=== PATIENT | female | born 1960 | race Caucasian/White ===

== ENCOUNTER 2021-05-26 12:56 | Emergency (ER) | payer OTHER ==
[~2021-05-26] VITALS: Ht 162.6 cm; Wt 66.7 kg
[2021-05-26 13:01] VITALS: BP 135/77
--- NOTE | 2021-05-26 13:26 | NUR ---
PT AMBULATED TO ER BED 2
[2021-05-26] MEDS ORDERED: MECLIZINE 25 MG TAB PO ONE (13:45)
[2021-05-26] MEDS ORDERED: NACL 0.9% 1,000 ML IV SCH (13:45)
--- NOTE | 2021-05-26 13:46 | NUR ---
61 YEARS OLD FEMALE ALERT, ORIENTED X4 WALKING TO ER C/O DIZZINESS NO HEADACHE FOR COUPLE DAYS.
[2021-05-26 14:09] LABS: BASOPHILS % (AUTO) 0.3 % (0.0-2.0); EOSINOPHILS # (AUTO) 0.2 K/uL (0-0.4); EOSINOPHILS % (AUTO) 1.8 % (0.0-4.0); HEMATOCRIT 38.9 % (36-48); HEMOGLOBIN 13.4 g/dL (12.0-16.0); LYMPHOCYTES # (AUTO) 3.1 K/uL (2.5-16.5); LYMPHOCYTES % (AUTO) 23.5 % (20.5-51.1); MEAN CORPUSCULAR HEMOGLOBIN 28 pg (27-31); MEAN CORPUSCULAR HGB CONC 35 g/dL (33-37); MONOCYTES # (AUTO) 0.9 K/uL (0.8-1.0); NEUTROPHILS # (AUTO) 8.8 K/uL (1.8-7.7); NEUTROPHILS % (AUTO) 67.4 % (42.2-75.2); PLATELET COUNT (AUTO) 125 K/uL (140-450); RED BLOOD CELL COUNT(AUTO) 4.74 MIL/uL (4.20-5.40); WHITE BLOOD COUNT (AUTO) 13.1 K/uL (4.8-10.8)
[2021-05-26 14:38] LABS: ALBUMIN 3.7 g/dL (3.4-5.0); ANION GAP 10.2 (8-16); CARBON DIOXIDE 32.7 mmol/L (21-32); CREATININE 0.9 mg/dL (0.6-1.3); POTASSIUM 3.9 mmol/L (3.5-5.1); TOTAL BILIRUBIN 0.4 mg/dL (0.0-1.0)
[2021-05-26 14:44] LABS: APPEARANCE,URINE CLEAR (CLEAR); BILIRUBIN,URINE NEGATIVE (NEGATIVE); BLOOD, URINE TRACE-I (NEGATIVE); COLOR,URINE YELLOW (YELLOW); LEUKOCYTE ESTERASE ,URINE TRACE (NEGATIVE); NITRITE, URINE NEGATIVE (NEGATIVE); UGLUCOSE NEGATIVE (NEGATIVE)
[2021-05-26 15:07] LABS: RBC,URINE 0-5 /HPF (0-5); WBC,URINE 0-5 /HPF (0-5)
[2021-05-26] MEDS ORDERED: MECL-303 PO (15:58)
[2021-05-26 16:00] VITALS: BP 130/63
--- NOTE | 2021-05-26 16:02 | NUR ---
PATIENT CONDITION IMPROVED, DENIES HEADACHE, NAUSEA DIZZINESS D/C HOME WITH INSTRUCTIONS AFTER CARE REVIEWED UNDERSTOOD LEFT ER AMBULATORY WITH STEADY GAIT.
== END 2021-05-26 16:00 | disposition home or self-care (01) ==
LOC: MED 12:56
DX: H81.399 Other peripheral vertigo, unspecified ear (principal); E11.9 Type 2 diabetes mellitus without complications; I10 Essential (primary) hypertension; Z79.899 Other long term (current) drug therapy
CPT/HCPCS: 36415; 80053; 81001; 84484; 85025; 93005; 96360; 99284; J7030; J8597

== ENCOUNTER 2022-11-11 09:43 | Emergency (ER) | payer OTHER ==
[~2022-11-11] VITALS: Ht 167.6 cm; Wt 68.0 kg
[~2022-11-11 09:43] MED LIST: MECL-303 PO
[2022-11-11 10:03] VITALS: BP 156/81
[2022-11-11] MEDS ORDERED: KETOROLAC 30 MG/ML VIAL IM ONE (11:45)
[2022-11-11] MEDS ORDERED: NAPR-54 PO (11:49)
--- NOTE | 2022-11-11 12:13 | NUR ---
The patient's care was reviewed and supervised by EVERARDO HUBER RN.
[2022-11-11 12:14] VITALS: BP 140/81
--- NOTE | 2022-11-11 12:14 | NUR ---
Patient discharged with v/s stable. Written and verbal after care instructions FOR [facility]RO[facility] given and explained. Patient alert, oriented and verbalized understanding of instructions. Ambulatory with steady gait. All questions addressed prior to discharge. ID band removed. Patient advised to follow up with PMD. Rx of given. Opportunity to ask questions provided and answered. SPLINT PROVIDED AND APPLIED
--- NOTE | 2022-11-11 12:14 | NUR ---
PT. LEFT WITHOUT RN FULL ASSESSMENT. 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 BEFORE RN WAS ABLE TO EXAMINE PT. PT. NOT FOUND IN LOBBY. CALLED PT.S NAME OUTSIDE ER. CHECKED BATHROOMS. PT. NOT FOUND. PT. LEFT WITHOUT BEING SEEN. NOTIFIED.
== END 2022-11-11 12:14 | disposition home or self-care (01) ==
LOC: MED 09:43
DX: S46.811A Strain of other muscles, fascia and tendons at shoulder and upper arm level, right arm, initial encounter (principal); E11.9 Type 2 diabetes mellitus without complications; I10 Essential (primary) hypertension; E78.5 Hyperlipidemia, unspecified; Z79.899 Other long term (current) drug therapy; X58.XXXA Exposure to other specified factors, initial encounter; Y92.89 Other specified places as the place of occurrence of the external cause; Y93.89 Activity, other specified; Y99.8 Other external cause status
CPT/HCPCS: 96372; 99283; J1885